=== PATIENT | male | born 1990 | race Caucasian/White ===

== ENCOUNTER 2018-08-15 20:16 | Emergency (ER) | payer OTHER ==
[~2018-08-15] VITALS: Ht 180.3 cm; Wt 136.1 kg
[2018-08-15] MEDS ORDERED: PRED20 PO (21:32)
[2018-08-15] MEDS ORDERED: Sudogest60 MG PO (21:32)
[2018-08-15] MEDS ORDERED: ALBU90OI INH (21:32)
== END 2018-08-15 21:45 | disposition home or self-care (01) ==
LOC: ER 20:16
DX: J45.901 Unspecified asthma with (acute) exacerbation (principal); R09.81 Nasal congestion
CPT/HCPCS: 71046; 94640; 99285-25; J7512

== ENCOUNTER 2019-03-23 09:40 | Emergency (ER) | payer OTHER ==
[~2019-03-23] VITALS: Ht 180.3 cm; Wt 142.9 kg
[~2019-03-23 09:40] MED LIST: ALBU90OI INH; PRED20 PO; Sudogest60 MG PO
== END 2019-03-23 11:31 | disposition home or self-care (01) ==
LOC: ER 09:40
DX: S39.012A Strain of muscle, fascia and tendon of lower back, initial encounter (principal); S46.911A Strain of unspecified muscle, fascia and tendon at shoulder and upper arm level, right arm, initial encounter; W01.0XXA Fall on same level from slipping, tripping and stumbling without subsequent striking against object, initial encounter
CPT/HCPCS: 73030; 73502; 99283-25

== ENCOUNTER 2022-12-15 06:58 | Emergency (ER) | payer OTHER ==
[~2022-12-15] VITALS: Ht 182.9 cm; Wt 158.8 kg
[2022-12-15] MEDS ORDERED: ALBU90OI INH (08:54)
[2022-12-15] MEDS ORDERED: PRED20 PO (08:54)
[2022-12-15 09:00] VITALS: BP 132/84
== END 2022-12-15 09:12 | disposition home or self-care (01) ==
LOC: ER 06:58
DX: J98.4 Other disorders of lung (principal); Z79.52 Long term (current) use of systemic steroids
CPT/HCPCS: 71046; 99284-25

== ENCOUNTER → 2023-12-19 | Outpatient (CLI) | payer OTHER ==
[~2023-12-19] MED LIST changes: +Flonase 0.05% N16 GM
[2023-12-19 20:08] LABS: BASOPHILS ABSOLUTE AUTO 0.14 K/mm3 (0.00-0.23); BASOPHILS PERCENT AUTO 1 % (0-2); EOSINOPHILS ABSOLUTE AUTO 0.22 K/mm3 (0.00-0.68); EOSINOPHILS PERCENT AUTO 2 % (0-6); Hematocrit 45.4 % (37.0-53.0); Hemoglobin 14.8 g/dL (13.5-17.5); IMMATURE GRAN ABSOLUTE AUTO 0.08 K/mm3 (0.00-0.10); IMMATURE GRAN PERCENT AUTO 1 % (0-1); LYMPHOCYTES ABSOLUTE AUTO 2.46 K/mm3 (0.84-5.20); LYMPHOCYTES PERCENT AUTO 23 % (21-46); MONOCYTES ABSOLUTE AUTO 0.82 K/mm3 (0.16-1.47); MONOCYTES PERCENT AUTO 8 % (4-13); Mean Corpuscular HGB 28.8 pg (26.0-34.0); Mean Corpuscular HGB Conc 32.6 g/dL (31.5-36.5); Mean Corpuscular Volume 88 fL (80-100); NEUTROPHILS ABSOLUTE AUTO 6.79 K/mm3 (1.96-9.15); NEUTROPHILS PERCENT AUTO 65 % (41-73); RDW Coefficient Variation 12.6 % (11.7-14.2); Red Blood Cell Count 5.14 M/mm3 (4.30-5.90); White Blood Cell Count 10.51 K/mm3 (4.00-11.30)
[2023-12-19 20:15] LABS: Mean Platelet Volume 10.5 fL (9.1-12.4); Platelet Count 273 K/mm3 (150-400)
[2023-12-19 22:37] LABS: Alanine Aminotransfer (ALT/SGP 29 U/L (12-78); Albumin, Blood 3.1 g/dL (3.4-5.0); Albumin/Globulin Ratio 0.6 (0.8-1.8); Alk Phos 58 U/L (50-136); Anion Gap 11 mmol/L (3-11); Aspartate Aminotrans (AST/SGOT 23 U/L (12-37); Bilirubin, Direct <0.1 mg/dL (0.0-0.3); Bilirubin, Indirect Unable to Calculate mg/dL (0.1-0.7); Bilirubin, Total 0.6 mg/dL (0.1-1.0); Blood Urea Nitrogen 10 mg/dL (8-24); Bun/Creatinine Ratio 10.6 (12.0-20.0); CHOL/HDL RATIO 3.2; CO2, Blood 27 mmol/L (21-32); Calcium, Blood 8.6 mg/dL (8.5-10.1); Chloride, Blood 102 mmol/L (98-108); Cholesterol 137 mg/dL (50-200); Creatinine, Blood 0.95 mg/dL (0.60-1.20); Globulin, Blood 5.1 g/dL (2.2-4.0); Glomerular Filtration Rate 109 (60-); Glucose, Blood 89 mg/dL (70-99); HDL Cholesterol 43 mg/dL (>39); LDL/HDL RATIO 1.8; Low Density Lipoprotein Chol 79 mg/dL (0-110); Potassium, Blood 4.1 mmol/L (3.5-5.5); Sodium, Blood 136 mmol/L (136-145); Total Protein, Blood 8.2 g/dL (6.4-8.2); Triglycerides 77 mg/dL (30-140); Very Low Density Lipoprot Chol 15 mg/dL (6-28)
== END | disposition home or self-care (01) ==
LOC: LAB 18:31 → LAB SHORT 18:31
PROVIDERS: Nurse Practitioner Family
DX: H53.9 Unspecified visual disturbance (principal); T14.8XXA Other injury of unspecified body region, initial encounter
CPT/HCPCS: 80053; 80061; 82248; 83036; 84443; 85025

== ENCOUNTER → 2024-03-01 | Outpatient (CLI) | payer OTHER | LOC: LAB 15:02 → LAB SHORT 15:02 | DX: E03.9 Hypothyroidism, unspecified (principal) | CPT/HCPCS: 84443 ==

== ENCOUNTER → 2024-05-14 | Outpatient (CLI) | payer OTHER | END | disposition home or self-care (01) | LOC: LAB 17:55 → LAB SHORT 17:55 | DX: E03.8 Other specified hypothyroidism (principal) | CPT/HCPCS: 84443 ==

== ENCOUNTER → 2025-03-05 | Outpatient (CLI) | payer OTHER ==
[2025-03-05 18:09] LABS: BASOPHILS ABSOLUTE AUTO 0.11 K/mm3 (0.00-0.23); BASOPHILS PERCENT AUTO 1 % (0-2); EOSINOPHILS ABSOLUTE AUTO 0.29 K/mm3 (0.00-0.68); EOSINOPHILS PERCENT AUTO 3 % (0-6); Hematocrit 43.7 % (37.0-53.0); Hemoglobin 14.5 g/dL (13.5-17.5); IMMATURE GRAN ABSOLUTE AUTO 0.04 K/mm3 (0.00-0.10); IMMATURE GRAN PERCENT AUTO 0 % (0-1); LYMPHOCYTES ABSOLUTE AUTO 2.43 K/mm3 (0.84-5.20); LYMPHOCYTES PERCENT AUTO 24 % (21-46); MONOCYTES ABSOLUTE AUTO 0.60 K/mm3 (0.16-1.47); MONOCYTES PERCENT AUTO 6 % (4-13); Mean Corpuscular HGB Conc 33.2 g/dL (31.5-36.5); Mean Corpuscular Volume 89 fL (80-100); NEUTROPHILS ABSOLUTE AUTO 6.55 K/mm3 (1.96-9.15); NEUTROPHILS PERCENT AUTO 65 % (41-73); NRBC ABSOLUTE 0.00 K/mm3 (0.00-0.02); NRBC Auto 0.0 /100 WBC (0.0-0.2); Platelet Count 288 K/mm3 (150-400); RDW Coefficient Variation 12.9 % (11.7-14.2); RDW Standard Deviation 42.1 fL (35.1-46.3)
[2025-03-05 19:28] LABS: Alanine Aminotransfer (ALT/SGP 27 U/L (12-78); Albumin, Blood 3.4 g/dL (3.4-5.0); Albumin/Globulin Ratio 0.7 (0.8-1.8); Anion Gap 9 mmol/L (3-11); Aspartate Aminotrans (AST/SGOT 18 U/L (12-37); Bilirubin, Total 0.5 mg/dL (0.1-1.0); Blood Urea Nitrogen 12 mg/dL (8-24); CHOL/HDL RATIO 3.4; CO2, Blood 25 mmol/L (21-32); Calcium, Blood 8.5 mg/dL (8.5-10.1); Chloride, Blood 105 mmol/L (98-108); Cholesterol 118 mg/dL (50-200); Creatinine, Blood 0.89 mg/dL (0.60-1.20); Globulin, Blood 4.7 g/dL (2.2-4.0); Glucose, Blood 102 mg/dL (70-99); HDL Cholesterol 35 mg/dL (>39); LDL/HDL RATIO 1.9; Low Density Lipoprotein Chol 68 mg/dL (0-110); Potassium, Blood 3.9 mmol/L (3.5-5.5); Sodium, Blood 135 mmol/L (136-145); Total Protein, Blood 8.1 g/dL (6.4-8.2); Triglycerides 75 mg/dL (30-140); Very Low Density Lipoprot Chol 15 mg/dL (6-28)
[2025-03-06 21:23] LABS: DEAMIDATED GLIADIN PEPTIDE,IGA 0.74 FLU (0.00-4.99); TISSUE TRANSGLUTAMINAS TTG,IGA <1.02 FLU (0.00-4.99)
== END | disposition home or self-care (01) ==
LOC: LAB SHORT 11:25 → LAB 11:25
PROVIDERS: Student in an Organized Health Care Education/Training Program
DX: Z13.6 Encounter for screening for cardiovascular disorders (principal); E03.8 Other specified hypothyroidism; E66.01 Morbid (severe) obesity due to excess calories; R10.9 Unspecified abdominal pain; R14.0 Abdominal distension (gaseous); R79.89 Other specified abnormal findings of blood chemistry
CPT/HCPCS: 80053; 80061; 83036; 84443; 85025; 86258; 86364